=== PATIENT | male | born 1980 | race Hispanic/Latino ===

== ENCOUNTER 2024-08-11 18:11 | Observation (INO) | payer OTHER ==
[~2024-08-11] VITALS: Ht 170.2 cm; Wt 28.6 kg
[2024-08-11 18:16] VITALS: PULSE 85; RESP 16; TEMP 97.9
[2024-08-11] MEDS ORDERED: IOPAMIDOL 370 MG/ML 100 ML INFUS..BTL INJ ONE (19:21)
[2024-08-11] MEDS ORDERED: Morphine 4mg INJECTION 4 MG/ML INJ IV PRN (20:45)
[2024-08-11] MEDS ORDERED: Morphine 2mg Syringe 2 MG/ML SYR IV PRN (20:45)
[2024-08-11] MEDS: D5.45%NS/KCL 20MEQ 1,000 ML IV SCH (22:14)
[2024-08-11 22:34] VITALS: BP_SYST 128; BP_SYST 129; BP_DIAS 69; BP_DIAS 84; PULSE 74; PULSE 76; RESP 18; TEMP 98; TEMP 98.6; O2SAT 100; O2SAT 98
[2024-08-11 23:17] VITALS: BP 129/84; PULSE 74; RESP 18; TEMP 98.6; O2SAT 98
[2024-08-11 23:18] VITALS: BP 129/84; RESP 18; TEMP 98.6; O2SAT 98
[2024-08-12] VITALS (9 sets, daily range): BP systolic 108–129; BP diastolic 68–83; PULSE 64–94; RESP 16–20; TEMP 98–98.6; O2SAT 99–100
[2024-08-12 06:38] LABS: BASOPHILS % 0.5 % (0.0-1.0); EOSINOPHILS # (AUTO) 0.1 (0.0-0.4); EOSINOPHILS % 0.8 % (0.0-6.0); HEMATOCRIT 42.3 % (38.2-49.6); HEMOGLOBIN 13.8 g/dL (14.0-18.0); LYMPHOCYTES # (AUTO) 3.1 (1.0-3.2); LYMPHOCYTES % 47.3 % (18.0-39.1); MEAN CORPUSCULAR HEMOGLOBIN 29.1 pg (28-32); MEAN CORPUSCULAR HGB CONC 32.6 g/dL (31-35); MEAN CORPUSCULAR VOLUME 89.1 fL (81-99); MONOCYTES # (AUTO) 0.5 (0.2-0.8); MONOCYTES % 7.3 % (4.4-11.3); NEUTROPHILS # (AUTO) 2.9 (2.1-6.9); NEUTROPHILS % 43.9 % (38.7-80.0); PLATELET COUNT 219 x10e3/uL (140-360); RED BLOOD COUNT 4.75 x10e6/uL (4.3-5.7); RED CELL DISTRIBUTION WIDTH 11.9 % (11.7-14.4); WHITE BLOOD COUNT 6.59 x10e3/uL (4.8-10.8)
[2024-08-12 07:08] LABS: ANION GAP 13.5 mmol/L (8-16); CALCIUM 8.6 mg/dL (8.4-10.2); CREATININE, SERUM 0.88 mg/dL (0.72-1.25); POTASSIUM 3.5 mmol/L (3.5-5.1)
[2024-08-12] MEDS ORDERED: ONDANSETRON HCL INJ 2MG/ML 2ML 2 MG/ML VIAL IV PRN (11:15)
[2024-08-12] MEDS ORDERED: ACETAMINOPHEN 325 MG TAB PO PRN (11:15)
[2024-08-12] MEDS ORDERED: Morphine 4mg INJECTION 4 MG/ML INJ IV PRN (11:15)
[2024-08-12] MEDS: DEXTROSE 5%/0.9% SOD CHL 1,000 ML IV SCH (16:45)
[2024-08-13 03:34] VITALS: BP 111/77; PULSE 97; RESP 18; TEMP 97.9; O2SAT 100
[2024-08-13 08:11] VITALS: BP 117/66; PULSE 82; RESP 16; TEMP 98.1; O2SAT 100
[2024-08-13 12:00] VITALS: BP 130/70; PULSE 62; RESP 18; TEMP 98.2; O2SAT 100
[2024-08-13 16:51] VITALS: BP 116/71; PULSE 77; RESP 16; TEMP 98.3; O2SAT 100
[2024-08-13 20:00] VITALS: BP 120/76; PULSE 78; RESP 19; TEMP 98; O2SAT 100
[2024-08-13 20:15] VITALS: BP 120/76; PULSE 78; RESP 19; TEMP 98; O2SAT 100
[2024-08-14 04:00] VITALS: BP 136/92; PULSE 90; RESP 18; TEMP 98.1; O2SAT 100
[2024-08-14] MEDS: DEXTROSE 5%/0.9% SOD CHL 1,000 ML IV SCH (06:14)
[2024-08-14 08:25] VITALS: BP 131/77; PULSE 80; RESP 17; TEMP 97.5; O2SAT 99
[2024-08-14 12:13] VITALS: BP 131/77; PULSE 80; RESP 17; TEMP 97.5; O2SAT 99
[2024-08-14 16:28] VITALS: BP 100/88; PULSE 73; RESP 17; TEMP 98.1; O2SAT 100
[2024-08-14 16:57] VITALS: BP 100/88; PULSE 73; RESP 17; TEMP 98.1; O2SAT 100
[2024-08-14 20:00] VITALS: BP 135/85; PULSE 74; RESP 18; TEMP 97.3; O2SAT 100
== END 2024-08-14 21:40 | disposition home or self-care (01) ==
LOC: EDBD 18:11 → FSED 18:14 → ERHOLD 20:41 → MED/SURG3 22:01
PROVIDERS: ADMIT Internal Medicine; ATTEND Internal Medicine
DX: K40.90 Unilateral inguinal hernia, without obstruction or gangrene, not specified as recurrent (principal)
CPT/HCPCS: 36415; 74177; 80048; 85025; 99284; G0378 ×4; J0295 ×4; J2470 ×3; J7042 ×3; J7050; Q9967